=== PATIENT | female | born 1945 | race Caucasian/White ===

== ENCOUNTER 2017-10-27 08:40 | Emergency (ER) | payer OTHER ==
[2017-10-27 08:41] VITALS: BP 175/77; PULSE 68; RESP 18; TEMP 98.9; O2SAT 99
--- NOTE | 2017-10-27 09:06 | PD ---
HPI Chief Complaint: Fall Time Seen by Provider: 09:05 Travel History International Travel<30 days: No Contact w/Intl Traveler<30days: No Traveled to known affect area: No History of Present Illness HPI 72-year-old female came to the emergency room with history of sudden onset dizziness this morning when she got up to go to the bathroom. Patient could not control her balance and ended up falling. She had her right knee and her head. Her was in the kitchen heard the thud and came to see what happened. Patient was on the floor but conscious. She was unable to rise on her own given the dizziness. He helped her stand up and then brought her to the emergency room. Patient says she was dizzy while she was in the car but at this point the dizziness has subsided. She was not nauseous. No headaches or chest pain. Patient says the dizziness is worse when she turns to her left. She recalls that many years ago she had something similar but not to this extent. Her knee is bruised but she is able to bear weight and ambulate. Vital signs were stable. Patient says she is very healthy and is not on any medications. Patient is not a smoker. [facility] Past Medical History Narrative Medical List of her past medical, surgical, social and family history is reviewed from the nursing note. Social History Tobacco Use: No Allergies-Medications (Allergen,Severity, Reaction): Coded Allergies: No Known Allergies (Unverified , 10/27/17) Comments No known drug allergies. Reported Meds & Prescriptions Reported Meds & Active Scripts Active Meclizine (Meclizine HCl) 25 Mg Tab 25 Mg PO TID PRN 5 Days Narrative Medication List of her home medications reviewed from the nursing note. Review of Systems Except as stated in HPI: all other systems reviewed are Neg Neurologic: Positive: Dizziness Physical Exam Narrative GENERAL: Awake, alert, anxious, mild distress SKIN: Focused skin assessment warm/dry. HEAD: Atraumatic. Normocephalic. EYES: Pupils equal and round. No scleral icterus. No injection or drainage. ENT: No nasal bleeding or discharge. Mucous membranes pink and moist. NECK: Trachea midline. No JVD. CARDIOVASCULAR: Regular rate and rhythm. No murmur appreciated. RESPIRATORY: No accessory muscle use. Clear to auscultation. Breath sounds equal bilaterally. GASTROINTESTINAL: Abdomen soft, non-tender, nondistended. Hepatic and splenic margins not palpable. MUSCULOSKELETAL: No obvious deformities. No clubbing. No cyanosis. No edema. NEUROLOGICAL: Awake and alert. No obvious cranial nerve deficits. Motor grossly within normal limits. Normal speech. NIH stroke score of 0 PSYCHIATRIC: Appropriate mood and affect; insight and judgment normal. Data Data Last Documented VS Orders Orders Electrocardiogram (10/27/17 09:22) Prothrombin Time / Inr (Pt) (10/27/17 09:22) Complete Blood Count With Diff (10/27/17 09:22) Basic Metabolic Panel (Bmp) (10/27/17 09:22) Troponin I (10/27/17 09:22) Urinalysis - C+S If Indicated (10/27/17 09:22) Ct Brain W/O Iv Contrast(Rout) (10/27/17 09:22) Chest, Single Ap (10/27/17 09:22) Ecg Monitoring (10/27/17 09:22) Iv Access Insert/Monitor (10/27/17 09:22) Oximetry (10/27/17 09:22) Sodium Chloride 0.9% Flush (Ns Flush) (10/27/17 09:30) Meclizine (Antivert) (10/27/17 09:30) Mri Brain W/O Contrast (10/27/17 ) Mra Brain W/O Contrast (Cow) (10/27/17 ) Ed Discharge Order (10/27/17 11:55) Labs Laboratory Tests Test 10/27/17 09:35 10/27/17 11:20 White Blood Count 7.0 TH/MM3 Red Blood Count 4.40 MIL/MM3 Hemoglobin 14.3 GM/DL Hematocrit 42.0 % Mean Corpuscular Volume 95.6 FL Mean Corpuscular Hemoglobin 32.6 PG Mean Corpuscular Hemoglobin Concent 34.1 % Red Cell Distribution Width 13.1 % Platelet Count 195 TH/MM3 Mean Platelet Volume 9.1 FL Neutrophils (%) (Auto) 62.4 % Lymphocytes (%) (Auto) 24.3 % Monocytes (%) (Auto) 9.1 % Eosinophils (%) (Auto) 3.1 % Basophils (%) (Auto) 1.1 % Neutrophils # (Auto) 4.4 TH/MM3 Lymphocytes # (Auto) 1.7 TH/MM3 Monocytes # (Auto) 0.6 TH/MM3 Eosinophils # (Auto) 0.2 TH/MM3 Basophils # (Auto) 0.1 TH/MM3 CBC Comment DIFF FINAL Differential Comment Prothrombin Time 10.0 SEC Prothromb Time International Ratio 0.9 RATIO Blood Urea Nitrogen 11 MG/DL Creatinine 0.67 MG/DL Random Glucose 98 MG/DL Calcium Level 8.5 MG/DL Sodium Level 139 MEQ/L Potassium Level 4.0 MEQ/L Chloride Level 107 MEQ/L Carbon Dioxide Level 26.9 MEQ/L Anion Gap 5 MEQ/L Estimat Glomerular Filtration Rate 86 ML/MIN Troponin I LESS THAN 0.02 NG/ML Urine Color LIGHT-YELLOW Urine Turbidity CLEAR Urine pH 6.5 Urine Specific [place] 1.005 Urine Protein NEG mg/dL Urine Glucose (UA) NEG mg/dL Urine Ketones NEG mg/dL Urine Occult Blood NEG Urine Nitrite NEG Urine Bilirubin NEG Urine Urobilinogen LESS THAN 2.0 MG/DL Urine Leukocyte Esterase MOD Urine RBC LESS THAN 1 /hpf Urine WBC 2 /hpf Microscopic Urinalysis Comment CATH-CULT NOT IND MDM Medical Decision Making Medical Screen Exam Complete: Yes Emergency Medical Condition: Yes Medical Record Reviewed: Yes Interpretation(s) Twelve-lead EKG was reviewed by me. Normal sinus rhythm, left axis deviation, nonspecific ST-T wave changes, poor R-wave progression. Heart rate of 70 bpm. Differential Diagnosis TIA, CVA, BPV Narrative Course 12:15 PM blood test results and UA are back and within normal limit. Head CT was negative. I proceeded to order MRI and MRA of her head to rule out CVA. These are negative as well. I'm comfortable discharging the patient home. She was given a dose of meclizine and in my opinion patient has BPV. I've explained all this to her and instructions I'm going to discharge her home on. Patient understands and is comfortable going home. Procedures EKG Prior to Arrival: No Diagnosis Primary Impression: Dizziness Additional Impressions: Vertigo Fall Qualified Codes: W19.XXXA - Unspecified fall, initial encounter Contusion of right knee Qualified Codes: S80.01XA - Contusion of right knee, initial encounter Referrals: Primary Care Physician 2 days Additional Instructions: You should not be driving until you have gotten a clearance from your primary care physician. Take the medication as per the prescription direction. Return to the ER if the condition worsens or any other new concerns. Otherwise see your primary care in next couple of days. Med/Other Pt SpecificInfo: Prescription(s) given Scripts Meclizine (Meclizine) 25 Mg Tab 25 MG PO TID Y for VERTIGO for 5 Days, TAB 0 Refills Prov: Aniket Schaefer MD 10/27/17 Disposition: 01 DISCHARGE HOME Condition: Stable Aniket Schaefer MD Oct 27, 2017 09:06
[2017-10-27] MEDS ORDERED: SODIUM CHLORIDE 0.9% FLUSH 10 ML FLUSH IVF PRN (09:30)
[2017-10-27] MEDS ORDERED: MECLIZINE HCL 25 MG TAB PO ONE (09:30)
[2017-10-27 09:49] LABS: AUTOMATED NEUTROPHIL # 4.4 TH/MM3 (1.8-7.7); BASOPHIL # 0.1 TH/MM3 (0-0.2); BASOPHIL % 1.1 % (0.0-2.0); EOSINOPHIL # 0.2 TH/MM3 (0-0.4); EOSINOPHIL % 3.1 % (0.0-4.0); HEMO FLAGS DIFF FINAL; LYMPH % 24.3 % (9.0-44.0); LYMPHOCYTE # 1.7 TH/MM3 (1.0-4.8); MEAN CELL VOLUME 95.6 FL (80.0-100.0); MEAN CORPUSCULAR HEMOGLOBIN 32.6 PG (27.0-34.0); MEAN CORPUSCULAR HGB CONC 34.1 % (32.0-36.0); MONO % 9.1 % (0.0-8.0); NEUT % 62.4 % (16.0-70.0); PLATELET COUNT 195 TH/MM3 (150-450); RED CELL DISTRIBUTION WIDTH 13.1 % (11.6-17.2)
[2017-10-27 09:56] LABS: INTERNATIONAL NORMALIZED RATIO 0.9 RATIO
--- NOTE | 2017-10-27 10:08 | RADRPT ---
EXAM DATE/TIME: 10/27/2017 09:34 [facility] COMPARISON: No previous studies available for comparison. INDICATIONS : Syncope. MEDICAL HISTORY : Myocardial infarction. SURGICAL HISTORY : None. ENCOUNTER: Initial ACUITY: 1 day PAIN SCORE: 0/10 LOCATION: Bilateral chest FINDINGS: A single view of the chest demonstrates the lungs to be symmetrically aerated without evidence of mas s, infiltrate or effusion. Encapsulated breast implants are noted. The cardiomediastinal contours ar e unremarkable. Osseous structures are intact. CONCLUSION: No acute disease. Arsh Fontanez MD FACR on October 27, 2017 at 10:05 Board Certified Radiologist. This report was verified electronically.
[2017-10-27 10:09] LABS: ANION GAP 5 MEQ/L (5-15); BICARBONATE 26.9 MEQ/L (21.0-32.0); BLOOD UREA NITROGEN 11 MG/DL (7-18); CHLORIDE 107 MEQ/L (98-107); GLOMERULAR FILTRATION RATE 86 ML/MIN (>89); SODIUM (NA) 139 MEQ/L (136-145)
--- NOTE | 2017-10-27 10:11 | RADRPT ---
EXAM DATE/TIME: 10/27/2017 10:00 [facility] COMPARISON: No previous studies available for comparison. INDICATIONS : Fall today. Hit front of head. RADIATION DOSE: 29.31 CTDIvol (mGy) MEDICAL HISTORY : None SURGICAL HISTORY : None. ENCOUNTER: Initial ACUITY: 1 day PAIN SCALE: 4/10 LOCATION: cranial TECHNIQUE: Multiple contiguous axial images were obtained of the head. Using automated exposure control and adj ustment of the mA and/or kV according to patient size, radiation dose was kept as low as reasonably a chievable to obtain optimal diagnostic quality images. DICOM format image data is available electro nically for review and comparison. FINDINGS: CEREBRUM: The ventricles are normal for age. No evidence of midline shift, mass lesion, hemorrhage or acute in farction. No extra-axial fluid collections are seen. POSTERIOR FOSSA: The cerebellum and brainstem are intact. The 4th ventricle is midline. The cerebellopontine angle i s unremarkable. EXTRACRANIAL: The visualized portion of the orbits is intact. SKULL: The calvaria is intact. No evidence of skull fracture. CONCLUSION: Negative for acute process. Arsh Fontanez MD FACR on October 27, 2017 at 10:08 Board Certified Radiologist. This report was verified electronically.
--- NOTE | 2017-10-27 10:41 | RADRPT ---
EXAM DATE/TIME: 10/27/2017 10:18 [facility] COMPARISON: No previous studies available for comparison. INDICATIONS : CVA. Dizziness. MEDICAL HISTORY : None. SURGICAL HISTORY : Breast surgery. ENCOUNTER: Initial ACUITY: 1 day PAIN SCORE: 0/10 LOCATION: head Please note a normal MRA of the brain does not entirely exclude the possibility of a small aneurysm, nor the possibility of distal intracranial vessel disease. TECHNIQUE: 3D time of flight MRA was performed. Source images, multiplanar STS MIP, and 3D volume MIP reconstru ctions were reviewed. FINDINGS: There is excellent visualization of the major intracranial arteries out to the second-order branch ve ssels. There is no evidence for aneurysm, vessel truncation or stenosis, and no evidence for vascula r malformation. CONCLUSION: Negative MRA of the brain rAsh Fontanez MD FACR on October 27, 2017 at 10:38 Board Certified Radiologist. This report was verified electronically.
--- NOTE | 2017-10-27 10:47 | RADRPT ---
EXAM DATE/TIME: 10/27/2017 10:18 [facility] COMPARISON: No previous studies available for comparison. INDICATIONS : CVA. MEDICAL HISTORY : None. SURGICAL HISTORY : Breast surgery ENCOUNTER: Initial ACUITY: 2 day PAIN SCORE: 0/10 LOCATION: head TECHNIQUE: Multiplanar, multisequence MRI of the brain was performed without contrast. FINDINGS: CEREBRUM: The ventricles are normal for age. No evidence of midline shift, mass lesion, hemorrhage or acute in farction. No extraaxial fluid collections are seen. The pituitary gland and suprasellar cistern are normal in configuration. WHITE MATTER: Moderate periventricular white matter changes. POSTERIOR FOSSA: The cerebellum and brainstem are intact. The 4th ventricle is midline. The cerebellopontine angle is unremarkable. The cerebellar tonsils are normal in position. DIFFUSION IMAGING: There is no restricted diffusion. EXTRACRANIAL: The visualized portions of the orbits and paranasal sinuses are unremarkable. CONCLUSION: Moderate ventricular white matter changes without focal ischemic event.. Arsh Fontanez MD FACR on October 27, 2017 at 10:43 Board Certified Radiologist. This report was verified electronically.
[2017-10-27 11:52] LABS: BLOOD, URINE NEG (NEG); COMMENT (UR) CATH-CULT NOT IND; CULTURE IF INDICATED CATH CULTURE NOT IND; GLUCOSE,URINE NEG (NEG); KETONE, URINE NEG (NEG); NITRITE,URINE NEG (NEG); PH, URINE 6.5 (5.0-8.5); URINE COLOR LIGHT-YELLOW (YELLW/STRAW)
[2017-10-27] MEDS ORDERED: MECL-62 PO (11:57)
[2017-10-27 12:21] VITALS: BP 155/70
--- NOTE | 2017-10-27 12:54 | EKG ---
Date Performed: 10/27/2017 Time Performed: 09:28:57 PTAGE: 72 years EKG: Sinus rhythm POSSIBLE ANTERIOR MYOCARDIAL INFARCTION BORDERLINE ECG NO PREVIOUS TRACING DOCTOR: Magen Warner Interpretating Date/Time 10/27/2017 12:52:46
== END 2017-10-27 12:41 | disposition home or self-care (01) ==
LOC: NEPE 08:40
DX: R42 Dizziness and giddiness (principal); S80.01XA Contusion of right knee, initial encounter; W18.30XA Fall on same level, unspecified, initial encounter
CPT/HCPCS: 70450; 70544; 70551; 71010; 80048; 81001; 84484; 85025; 85610; 93005